=== PATIENT | female | born 1995 | race African-American/Black ===

== ENCOUNTER 2017-09-23 20:13 | Emergency (ER) | payer OTHER ==
[~2017-09-23] VITALS: Ht 172.7 cm; Wt 68.5 kg
[~2017-09-23 20:13] MED LIST: BACL10TA PO; DICL75 PO; Z.0.NO CURRENT MEDS
[2017-09-23 20:14] VITALS: BP 129/89; PULSE 75; RESP 15; TEMP 97.8; O2SAT 100
[2017-09-23] MEDS ORDERED: CYCL10TA PO (21:23)
[2017-09-23] MEDS ORDERED: DICL75TA PO (21:23)
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
[2017-09-23] MEDS ORDERED: NAPROXEN 500 MG TAB PO ONE (21:30)
[2017-09-23] MEDS ORDERED: CYCLOBENZAPRINE HCL 10 MG TAB PO ONE (21:30)
== END 2017-09-23 21:48 | disposition home or self-care (01) ==
LOC: NEPD 20:13
DX: S16.1XXA Strain of muscle, fascia and tendon at neck level, initial encounter (principal); J45.909 Unspecified asthma, uncomplicated; V49.40XA Driver injured in collision with unspecified motor vehicles in traffic accident, initial encounter
CPT/HCPCS: 84703; 99283